=== PATIENT | male | born 1970 | race Caucasian/White ===

== ENCOUNTER 2023-01-18 13:23 | Outpatient (OUT) | payer BC, SELFPAY ==
--- NOTE | 2023-01-18 13:30 | VEIN_ITS ---
[address] [address] Patient Name: KALEY MILLAN MRN: [id number] date: 1970 Sex: M Assigned Patient Location: Current Patient Location: Accession/Order Number: [id number] Exam Date: 01/18/2023 13:30 Report Date: 01/19/2023 11:12 At the request of: ARTHUR SAGE Procedure: VC Endovenous Perf Ablation LT EXAMINATION: VC Endovenous Perf Ablation LT HISTORY: PAINFUL VARICOSE VEINS COMPARISON: Extremity venous reflux bilateral 11/13/2022 OPERATIVE REPORT: DIAGNOSIS: Superficial venous reflux, incompetent oracle erp architect veins PROCEDURE: Endovenous laser ablation of left lower extremity oracle erp architect veins. PROCEDURE: The patient was positioned supine on the table and the leg was prepped and draped to allow for visualization during venous access. A sterile cover was draped over a 16 MHz ultrasound probe. Venous mapping was performed prior to the procedure noting location and size of the vessel(s). Eating Disorder Specialist vein: Proximal posterior calf. The diameter of the vein ranged from 3.3 mm. Using a 30-gauge needle the entry site was anesthetized with 0.5 cc of 1% buffered lidocaine. Access was gained percutaneously with a 21-gauge needle into the oracle erp architect vein under ultrasound guidance. The needle was advanced into the desired position and the previously measured 400 um fiber was then inserted into the needle and locked in place. The position of the fiber was imaged with ultrasound guidance. The fiber tip was visualized to be greater than 1 cm from the deep vessel. An anesthetic solution of 1-2 cc 1% buffered lidocaine was delivered around the course of the vein under ultrasound guidance using a syringe. A final positioning check of the laser fiber tip was performed. The laser was activated by means of the foot pedal and the fiber needle withdrawn together in accordance to the desired joules per treatment area/spot well. 2 areas/spot wells were performed in the total number of joules delivered was 117. The total time of MA energy delivery was 14 seconds. A duplex ultrasound revealed compressibility and flow of the deep system immediately after the procedure. Hemostasis at the access site was achieved and dressed. A 20-13 mm compression stocking over cold and was placed on the treated leg. Postop instructions were given any follow-up appointment was made. CONCLUSION: 1. Technically successful endovenous laser ablation a oracle erp architect vein within posterior lower left leg. Electronically authenticated by: ELLIE DAS Date: 01/19/2023 11:12
[2023-01-25] MEDS: LIDOCAINE HCL 20 ML, SODIUM BICARBONATE 2 MEQ INJ (11:13)
== END 2023-01-18 13:24 ==
LOC: VC 13:24
PROVIDERS: PCP Radiology Diagnostic Radiology; Visit Provider Radiology Diagnostic Radiology
DX: I83.813 Varicose veins of bilateral lower extremities with pain (principal)
CPT/HCPCS: 36478

== ENCOUNTER 2023-01-29 07:26 | Outpatient (OUT) | payer BC, SELFPAY ==
--- NOTE | 2023-01-29 07:28 | VEIN_ITS ---
Patient: KALEY MILLAN Exam Date: 01/29/2023 : 1970 Gender:M Ordering : DR SHIVA SAGE M.D. Admission #: [id number] Family : Order #: [id number] CLICK HERE TO VIEW EXAM RADIOLOGY REPORT PROCEDURE: VC [facility] EST [facility] - OFFICE VISIT FOLLOW UP COMPARISON: None. PROGRESS NOTES: The patient reports no significant problems following intravenous laser ablation of left leg incompetent perforating veins. The patient has worn his compression stocking. The patient did not require oral analgesics. The patient has followed our recommendations to walk 20-30 minutes once or twice per day since the procedure. Physical exam demonstrates significant softening of the left medial ankle wound with extensive hemosiderin staining. Residual varicose veins are noted. No open ulcer or eschar is observed Review of the ultrasound performed the same day demonstrates occlusive thrombus extending throughout the treated left leg incompetent perforating vein. No deep vein thrombus. The patient expressed a desire to proceed with treatment of incompetent varicose veins with micro foam chemical ablation. I informed the patient's likely take 1-2 sessions in addition to followups. IMPRESSION: 1. Successful ablation of perforating vein 2. Persistent left leg incompetent varicose veins PLAN: Micro foam chemical ablation left leg Nurse notes, history and physical were reviewed and confirmed, see attached forms. The nurse was present throughout the physical exam and consultation Dictated by: Shiva Sage MD on 01/29/2023 at 07:47 Approved by: Shiva Sage MD on 01/29/2023 at 07:55
--- NOTE | 2023-01-29 07:28 | VEIN_ITS ---
Patient: KALEY MILLAN Exam Date: 01/29/2023 : 1970 Gender:M Ordering : DR SHIVA SAGE M.D. Admission #: [id number] Family : Order #: [id number] CLICK HERE TO VIEW EXAM RADIOLOGY REPORT PROCEDURE: VC EXT VENOUS LT LIMITED COMPARISON: None. INDICATIONS: Phlebitis of superficial veins of lt lower extremity I80.02 TECHNIQUE: Lower extremity carney scale and Duplex Doppler evaluation of the deep venous system from the inguinal ligament through the calf veins. FINDINGS: REGION: Left lower extremity. THROMBI: Negative for DVT. Heat induced thrombus visualized at distal/posterior calf plywood layup line back feeder. COMPRESSIBILITY: Non-compressible segments corresponding throughout. FLOW: Absent flow corresponding to thrombus *Exam performed in accordance with [facility] practice guidelines- Peripheral venous ultrasound, November 02, 2009. CONCLUSION: Post ablation occlusion of treated incompetent plywood layup line back feeder vein Dictated by: Shiva Sage MD on 01/29/2023 at 07:46 Approved by: Shiva Sage MD on 01/29/2023 at 07:47
== END 2023-01-29 07:27 | disposition home or self-care (01) ==
LOC: VC 07:26
PROVIDERS: PCP Radiology Diagnostic Radiology; Visit Provider Radiology Diagnostic Radiology
DX: I80.02 Phlebitis and thrombophlebitis of superficial vessels of left lower extremity (principal)
CPT/HCPCS: 93971; G0463

== ENCOUNTER 2023-02-10 07:24 | Outpatient (OUT) | payer BC, SELFPAY | END 2023-02-10 07:25 | disposition home or self-care (01) | LOC: VC 07:24 | PROVIDERS: PCP Radiology Diagnostic Radiology; Visit Provider Radiology Diagnostic Radiology | DX: I83.813 Varicose veins of bilateral lower extremities with pain (principal) ==